=== PATIENT | female | born 1995 ===

== ENCOUNTER 2019-12-18 14:26 | Emergency (ER) | payer BC ==
[2019-12-18 17:22] VITALS: BP 153/109
--- NOTE | 2019-12-18 17:43 | UC ---
Throat Pain/Nasal Romulo HPI - HPI Summary HPI Summary: started 4 days ago with fever and ST, taking ibuprofen which has helped a bit. today ST persists and is starting to hurt to swallow. last ibuprofen 7a today - History of Current Complaint Chief Complaint: UCGeneralIllness Stated Complaint: SORE THROAT Time Seen by Provider: 12/18/19 17:38 Hx Obtained From: Patient ?: No Onset/Duration: Gradual Onset Severity: Severe Pain Intensity: 8 Cough: None - Allergies/Home Medications Allergies/Adverse Reactions: Allergies Allergy/AdvReac Type Severity Reaction Status Date / Time acetaminophen Allergy Hives Verified 12/18/19 17:22 Home Medications: Home Medications Azithromycin 250 mg PO DAILY #4 tablet 12/18/19 [Rx] Cetirizine* [ZyrTEC 10 MG TAB*] 10 mg PO DAILY 12/18/19 [History Confirmed 12/17] Omeprazole (Nf) [Prilosec (NF)] 40 mg LEFT EAR 12/18/19 [History] l-Norgest/E.estradiol-E.estrad [Seasonique 0.15-0.03-0.01 Tab] 1 tab PO DAILY [History Confirmed 12/18/19] PMH/Surg Hx/FS Hx/Imm Hx Previously Healthy: Yes GI/ History: Gastroesophageal Reflux - Surgical History Surgical History: None - Social History Occupation: Student Lives: With Family Alcohol Use: Rare Substance Use Type: None Smoking Status (MU): Never Smoked Tobacco Review of Systems All Other Systems Reviewed And Are Negative: Yes Constitutional: Positive: Fever Skin: Positive: Negative. Negative: Rash ENT: Positive: Sore Throat Respiratory: Negative: Shortness Of Breath, Cough Cardiovascular: Positive: Negative Gastrointestinal: Positive: Negative Musculoskeletal: Positive: Negative Neurological/Mental Status: Positive: Negative Psychological: Positive: Negative Is Patient Immunocompromised?: No Physical Exam Triage Information Reviewed: Yes Appearance: Well-Appearing, No Pain Distress, Well-Nourished Vital Signs: Initial Vital Signs Temp 97.3 F 12/18/19 17:17 Pulse 100 12/18/19 17:17 Resp 18 12/18/19 17:17 BP 153/109 12/18/19 17:17 Pulse Ox 100 12/18/19 17:17 Vital Signs Reviewed: Yes Eyes: Positive: Conjunctiva Clear ENT: Positive: Pharyngeal erythema, TMs normal. Negative: Nasal congestion Neck exam: Normal Neck: Positive: No Lymphadenopathy Respiratory Exam: Normal Respiratory: Positive: Lungs clear Cardiovascular Exam: Normal Cardiovascular: Positive: RRR Neurological Exam: Normal Psychological Exam: Normal Skin Exam: Normal Throat Pain/Nasal Course/Dx - Differential Dx/Diagnosis Differential Diagnosis/HQI/PQRI: Influenza, Pharyngitis, Sinusitis, Tonsillitis , URI Provider Diagnosis: Strep pharyngitis Discharge ED - Sign-Out/Discharge Documenting (check all that apply): Patient Departure All imaging exams completed and their final reports reviewed: No Studies - Discharge Plan Condition: Good Disposition: HOME Prescriptions: Azithromycin 250 mg PO DAILY #4 tablet Patient Education Materials: Strep Throat (DC) Referrals: No Primary Care Phys,NOPCP [Primary Care Provider] - [facility] [Outside] Additional Instructions: Drink plenty of fluids and rest take azithromycin antibiotic as prescribed - start next ralph tomorrow use ibuprofen as directed for pain and fever - Billing Disposition and Condition Condition: GOOD Disposition: Home
[2019-12-18] MEDS ORDERED: Azithromycin TAB* 250 MG PO ONE (17:48)
== END 2019-12-18 17:56 | disposition home or self-care (01) ==
LOC: UCEAST 14:26
DX: J02.0 Streptococcal pharyngitis (principal); Z88.6 Allergy status to analgesic agent; K21.9 Gastro-esophageal reflux disease without esophagitis; Z79.899 Other long term (current) drug therapy
CPT/HCPCS: 87651; 99202; A9270-GY; G0463